=== PATIENT | male | born 1985 | race Caucasian/White ===

== ENCOUNTER 2016-11-26 05:27 | Emergency (ER) | payer MEDICAID ==
[~2016-11-26] VITALS: Ht 182.9 cm; Wt 80.7 kg
[2016-11-26 05:34] VITALS: BP 124/78
--- NOTE | 2016-11-26 05:35 | NUR ---
BIB [facility] TO ER BED 7
--- NOTE | 2016-11-26 05:39 | NUR ---
Patient being evaluated by physician at bedside.
--- NOTE | 2016-11-26 05:41 | NUR ---
31Y/M PT. [facility] FOR PRE-BOOK. AAO X4, AMBULATORY WITH STEADY GAIT. NO S/SX OF DISTRESS NOTED. VSS, ER MADE AWARE OF PT. STATUS.
[2016-11-26 05:43] VITALS: BP 124/78
--- NOTE | 2016-11-26 05:44 | NUR ---
Patient discharged with v/s stable. Written and verbal after care instructions given and explained. Patient verbalized understanding. Ambulatory with steady gait. All questions addressed prior to discharge. Advised to follow up with PMD.
--- NOTE | 2016-11-26 05:44 | NUR ---
PATIENT [facility]. PATIENT EXAMINED BY DR. LUTZ. PATIENT MEDICALLY CLEARED AND RELEASED IN CUSTODY IN STABLE CONDITION. ORIGINAL PRE-BOOK FORM GIVEN TO OFFICER [employer]BER.
== END 2016-11-26 05:44 ==
LOC: MED 05:35
DX: Z02.89 Encounter for other administrative examinations (principal); R03.0 Elevated blood-pressure reading, without diagnosis of hypertension; Z73.9 Problem related to life management difficulty, unspecified; Z88.0 Allergy status to penicillin; E11.9 Type 2 diabetes mellitus without complications
CPT/HCPCS: 99283